=== PATIENT | male | born 1990 | race Two or more races ===

== ENCOUNTER 2025-02-04 07:01 | Emergency (ER) | payer MEDICAID, SELFPAY ==
[2025-02-04 07:02] VITALS: BMI 34.4
[2025-02-04 07:14] VITALS: BP 113/63; PULSE 67; RESP 17; TEMP 36.3; O2SAT 97
--- NOTE | 2025-02-04 07:17 | XR_ITS ---
Examination: Hand, right 3 views Technique: Hand AP, oblique, lateral 3 views Date and time of exam: February 04, 2025, 0732 hrs. Indications: Patient fell today with injury to the hand, hand pain Findings: No acute fracture. No dislocation No foreign body Impression: No acute fracture Impression: No acute fracture
--- NOTE | 2025-02-04 07:17 | XR_ITS ---
Examination: Knee, right , 3 views Technique: Knee AP, lateral, oblique 3 views Date and time of exam: February, 0722 hrs. Indications: Patient fell today with into the right knee, right knee pain Findings: Adequate bone density. No fracture or dislocation. Small knee effusion Impression: No fracture or dislocation.
[2025-02-04] MEDS: IBUPROFEN TAB 400 MG TABLET 800 MG PO (07:40)
--- NOTE | 2025-02-04 07:43 | PD.EDLOWEX ---
Lower Extremity Injury RME/HPI General Chief Complaint: Extremity Injury, Lower Stated Complaint: RIGHT LEG INJURY Time Seen by Provider: 02/04/25 07:15 Arrival date/time: 02/04/25 07:01 34-year-old male presents to the emergency department of complaints of falling off scooter yesterday patient reports right knee pain and right hand pain. Limitations: no limitations Related Data Previous Rx's ?Medication ?Instructions ?Recorded ibuprofen 800 mg tablet 800 mg PO TID PRN pain #30 tabs 02/04/25 Allergies Allergy/AdvReac Type Severity Reaction Status Date / Time No Known Allergies Allergy Verified 02/04/25 07:04 Review of Systems Review of Systems Systems Reviewed: All systems reviewed, normal except as documented Constitutional Constitutional: Reports system reviewed and no additional complaints, except as documented, Denies fever(s) and Denies headache(s) Eyes Eyes: Reports system reviewed and no additional complaints, except as documented and Denies blurry vision ENT Ears, Nose, Mouth, and Throat: Reports system reviewed and no additional complaints, except as documented, Denies headache(s), Denies nasal congestion and Denies nasal discharge Cardiovascular Cardiovascular: Reports system reviewed and no additional complaints, except as documented, Denies chest pain and Denies dyspnea Respiratory Respiratory: Reports system reviewed and no additional complaints, except as documented, Denies chest congestion, Denies cough and Denies dyspnea Gastrointestinal Gastrointestinal: Reports system reviewed and no additional complaints, except as documented and Denies abdominal pain Musculoskeletal Musculoskeletal: Reports system reviewed and no additional complaints, except as documented, Reports abnormal gait, Reports arthralgias, Denies deformity, Denies numbness, Denies stiffness and Denies tingling Integumentary/Breasts Skin/Breast: Reports system reviewed and no additional complaints, except as documented and Denies rash Neurologic Neurologic: Reports system reviewed and no additional complaints, except as documented, Reports as per HPI, Reports abnormal gait, Denies headache(s), Denies numbness and Denies tingling Past Medical History Social History SMOKING STATUS: Never smoker ED Exam General Limitations: Present no limitations General appearance: Present alert and in no apparent distress Head Head exam: Present atraumatic, normocephalic and normal inspection Eye Eye exam: Present normal appearance, PERRL and EOMI ENT ENT exam: Present normal exam, normal oropharynx and mucous membranes moist Neck Neck exam: Present normal inspection, full ROM and trachea midline Chest Chest inspection: Present normal inspection and symmetric chest wall rise Respiratory Respiratory exam: Present normal lung sounds bilaterally Cardiovascular Cardiovascular exam: Present regular rate, normal rhythm and normal heart sounds Abdominal Exam Abdominal exam: Present soft and normal bowel sounds Extremities Exam Extremities exam: Present full ROM, tenderness, normal capillary refill and joint swelling (Joint swelling right knee) Back Exam Back exam: Present normal inspection and full ROM Neurological Exam Neurological exam: Present alert, oriented X3 and CN II-XII intact Psychiatric Psychiatric exam: Present normal affect and normal mood Skin Skin exam: Present warm, dry, intact and normal color Course Quality Measures none Orders Category Date Time Status XR hand comp RT min 3V Stat Exams 02/04/25 07:17 Completed XR knee RT 3V Stat Exams 02/04/25 07:17 Completed Ibuprofen Tab [Motrin Tab] Med 02/04/25 07:17 Discontinued 800 mg PO X1 ONE Vital Signs Vital signs: Vital Signs Temperature 97.3 F 02/04/25 07:14 Pulse Rate 67 02/04/25 07:14 Respiratory Rate 17 02/04/25 07:14 Blood Pressure 113/63 02/04/25 07:14 Pulse Oximetry (%) 97 02/04/25 07:14 Oxygen Delivery Method Room Air 02/04/25 07:14 O2 sats was 97% room air within the limits Extremity Injury, Lower MDM Narrative MDM Narrative:: 34-year-old male presents to the emergency department of complaints of falling off scooter yesterday patient reports right knee pain and right hand pain. On exam patient has tenderness of the right knee with mild swelling X-ray of the right knee and right hand obtained X-rays of the right hand and right knee obtained Patient placed in Ramses wrap and crutches Patient discharged home in no distress to follow-up with primary care doctor in the next 24 to 48 hours and for any worsening symptoms to return to the ER immediately Patient data External records reviewed:: [facility] previous records Clinical information provided by:: patient Social determinants that could affect healthcare access:: none Patient has the following chronic illnesses:: None How is presenting disease/condition affected by chronic disease/condition?: no chronic disease Evaluation data The following diagnostics were reviewed and interpreted by me:: radiology exam(s) Lab and/or radiology exams considered but not ordered:: Radiology obtained Interpretation Summary: Reviewed by me Medications / Prescriptions Medications or Prescriptions considered but not ordered:: Given Medication administrations:: Medication Administration History Discontinued Medications Ibuprofen (Ibuprofen Tab 400 Mg Tablet) 800 mg PO X1 ONE Stop: 02/04/25 07:18 Last Admin: 02/04/25 07:40 Dose: 800 mg Documented By: TM Given Consultations Consultation(s) initiated? (list below): No Diagnosis Extremity Injury, Lower Differential Diagnosis: other (Contusion right knee, contusion right hand) Most likely diagnosis given after review of the tests above:: Hand contusion right Admission Indicated Admission indicated?: not indicated Admission Request Was there a request for admission?: No Disposition Plan Disposition Plan: Discharge Discharge Attestation Discharge Attestation: The patient and all family members were given an opportunity to ask questions and understood the discharge instructions. Discharge instructions specifically effects, indications for sooner follow up or return to the emergency department, and the expected course of current diagnosis. Patient condition: Stable Discharge Plan Plan Patient Disposition: HOME (Self Care) Discharge Disposition comment: Stable Prescriptions/Referrals Prescriptions/Med Rec: New ibuprofen 800 mg tablet 800 mg PO TID PRN (Reason: pain) Qty: 30 0RF Referrals: No Primary/Family,Physician [Primary Care Provider] - 02/05/25 Problem List Clinical Impression: Contusion of finger of right hand, Right knee sprain Patient/Caregiver Discharge Instructions Education Materials: Bruises (Contusions) Additional Instructions: Please follow up with your primary care doctor in the next 24-48hrs for any worsening symptoms return here immediately Print Language: [place] Stand Alone Forms: Charo Award Info., Work/School Release, Patient Portal Info Letter RAFAEL/TERENCE Supervising Physician RAFAEL/TERENCE Supervising Physician: Dr. Silva
== END 2025-02-04 08:33 | disposition home or self-care (01) ==
PROVIDERS: Emergency Provider Family Medicine
DX: S60.00XA Contusion of unspecified finger without damage to nail, initial encounter (principal); S83.91XA Sprain of unspecified site of right knee, initial encounter; W19.XXXA Unspecified fall, initial encounter
CPT/HCPCS: 73130; 73562; 99283; A9270